=== PATIENT | female | born 1960 | race Two or more races ===

== ENCOUNTER 2019-05-02 04:42 | Day surgery (SDC) | payer OTHER ==
[~2019-05-02 04:42] MED LIST: ALLEGRA PO; FIORICET PO; PROTONIX40 M1 PO; ZESTRIL20 MG PO; [UNRECOGNIZED DRUG - OTHER] PO
== END 2019-05-02 12:30 | disposition home or self-care (01) ==
LOC: CIR.AMB 04:42 → EDBD 14:30
DX: N39.498 Other specified urinary incontinence (principal); R15.9 Full incontinence of feces
CPT/HCPCS: 64581; C1778

== ENCOUNTER 2019-05-16 04:35 | Day surgery (SDC) | payer OTHER | END 2019-05-16 11:15 | disposition home or self-care (01) | LOC: CIR.AMB 04:35 | DX: R15.9 Full incontinence of feces (principal) | CPT/HCPCS: 64590; C1767 ==